=== PATIENT | female | born 1980 | race Caucasian/White ===

== ENCOUNTER 2017-12-26 09:00 | Outpatient (CLI) | payer BC | END 2017-12-26 09:01 | disposition home or self-care (01) | LOC: BICRAD 09:00 | PROVIDERS: ATTEND Urology | DX: N20.0 Calculus of kidney (principal) | CPT/HCPCS: 74018 ==

== ENCOUNTER 2018-01-16 10:37 | Outpatient (CLI) | payer BC ==
[2018-01-16 11:22] LABS: Hemoglobin 15.2 g/dL (12.0-16.0); Mean Corpuscular HGB CONC 33.9 g/dL (32.0-36.0); Mean Corpuscular Hemoglobin 31.2 pg (27.0-31.0); Mean Corpuscular Volume 92.1 fl (81.0-99.0); Mean Platelet Volume 6.9 fL (7.4-10.4); Platelet Count 311 thou/uL (130-400); RBC Distribution Width 10.4 % (11.5-14.5); Red Blood Cell (RBC) Count 4.88 mill/uL (4.20-5.40); White Blood Cell (WBC) Count 6.7 thou/uL (4.8-10.8)
[2018-01-16 11:30] LABS: BHCG - Serum Negative (NEGATIVE); Pregs Control Background? CLEAR/WHITE (CLR/WHITE); Pregs Control Bar Appear? YES (CONTROL BAR)
[2018-01-16 11:45] LABS: Anion Gap 12 mmol/L (10-20); BUN (Urea Nitrogen) 17 mg/dL (7.0-18.7); Calc. Creatinine Clearance 0 mL/min (70-130); Calcium 9.2 mg/dL (7.8-10.44); Carbon Dioxide 25 mmol/L (22-29); Chloride 106 mmol/L (98-107); Estimated GFR-MDRD 75; Glucose 107 mg/dL (70-105); Potassium 4.5 mmol/L (3.5-5.1); Sodium 138 mmol/L (136-145)
[2018-01-16 12:14] LABS: PTT 32.2 SEC (22.9-36.1); Prothrombin Time 12.8 SEC (12.0-14.7)
== END 2018-01-16 10:38 | disposition home or self-care (01) ==
LOC: LABBT 10:37
PROVIDERS: ATTEND Urology
DX: Z01.812 Encounter for preprocedural laboratory examination (principal); N20.0 Calculus of kidney
CPT/HCPCS: 80048; 84703; 85027; 85576; 85610; 85730

== ENCOUNTER 2018-01-17 05:44 | Day surgery (SDC) | payer BC ==
[2018-01-16 11:15] VITALS: BMI 21.6
[2018-01-17] MEDS ORDERED: Midazolam HCl 2 mg/2 ml Vial ONE (06:14)
[2018-01-17] MEDS ORDERED: Fentanyl 100 MCG/2 ML VIAL ONE ×3 (06:14→08:43)
[2018-01-17] MEDS ORDERED: Promethazine HCl 25 MG/ML VIAL ONE ×2 (07:33→09:05)
--- NOTE | 2018-01-17 08:16 | RAD ---
KUB: Date: 01/17/18 PROVIDED CLINICAL HISTORY: Preop. FINDINGS: Comparison made with the study dated 09/07/05. The abdominal bowel gas pattern is nonspecific. Calculus overlies the right renal shadow. Cholecystec radha clips are seen in the right upper quadrant. The abdominal bowel gas pattern is nonspecific. [place] l[place] densities, possibly reflecting clips, are seen overlying the left hemipelvis. IMPRESSION: Right nephrolithiasis. POS: RUSLAN
[2018-01-17] MEDS ORDERED: Ondansetron ODT 8 MG TAB ONE (08:47)
[2018-01-17] MEDS ORDERED: HYDROcodone/Acetaminophen 5/325 mg Tablet ONE (09:43)
--- NOTE | 2018-01-17 10:27 | OP ---
DATE OF PROCEDURE: 01/17/2018 PREOPERATIVE DIAGNOSIS: Right renal stone. POSTOPERATIVE DIAGNOSIS: Right renal stone. PROCEDURE PERFORMED: Extracorporeal shock wave lithotripsy. SURGEON: Dr. Josse Saunders ANESTHETIC: General. ESTIMATED BLOOD LOSS: Not recorded. 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 She has a lower pole reconstructive procedure, so this stone was treated with 700 shocks at maximum level 4. It did appear to fragment very well. No sten t was placed. OPERATIVE TECHNIQUE: After obtaining written and verbal consent from the patient, after documenting normal preoperative blood work and platelet function assay, she was taken the operating suite. She w as placed in the supine position on the treatment table. PlexiPulses were placed on her lower extrem ities and turned on. She was given a general anesthetic and oral obturator intubation. She was then coupled to the lithotripsy unit. The stone was easily seen and placed in treatment focal point. Sh ockwave therapy was commenced at a low kV and a low rate after a couple 100 shocks, a 5 minute pause was given. The power was then increased to 4 and a rate at 60, the stone disappeared after about 500 shocks and then we removed the head and looked better and found it had fallen up towards the lower p ole and had spread out in size. We then repositioned her, we placed her in the treatment focal point and then started again and then after another 200 shocks could not see the stone, could not see the stone in any of the planes, could not see the stone in any other locations in the kidney. At that po int it was felt the stone had fragmented. No stent was placed. She was awakened, extubated, and corinna en by stretcher to the recovery room.
[2018-01-17] MEDS ORDERED: Lidocaine 1% PF 5 ML VIAL ONE (11:54)
[2018-01-17] MEDS ORDERED: PROPOFOL 200 MG/20 ML VIAL ONE (11:54)
[2018-01-17] MEDS ORDERED: Dexamethasone 20 MG/5 ML VIAL ONE (11:54)
== END 2018-01-17 10:05 | disposition home or self-care (01) ==
LOC: SDC 05:44
PROVIDERS: ATTEND Urology
PROC: 0TF3XZZ Fragmentation in Right Kidney Pelvis, External Approach (ICD-10-PCS; principal; 2018-01-17)
DX: N20.0 Calculus of kidney (principal); Z79.3 Long term (current) use of hormonal contraceptives; Z79.899 Other long term (current) drug therapy; Z88.2 Allergy status to sulfonamides; Z98.890 Other specified postprocedural states; Z87.891 Personal history of nicotine dependence
CPT/HCPCS: 74018; 96374; J2250; J2550; J3010

== ENCOUNTER 2021-07-08 11:05 | Day surgery (SDC) | payer BC ==
[2021-07-08] MEDS ORDERED: Ketorolac Tromethamine 30 MG/ML VIAL ONE (11:49)
[2021-07-08] MEDS ORDERED: Ondansetron PF 4 MG/2 ML Vial ONE ×2 (11:49→15:18)
[2021-07-08] MEDS ORDERED: HYDROmorphone 0.5 MG/0.5 ML SYRINGE ONE ×3 (11:51→15:18)
[2021-07-08 11:59] LABS: #Basophils 0.1 thou/uL (0.0-0.2); #Eosinphils 0.2 thou/uL (0.0-0.7); #Lymphocytes 1.9 thou/uL (1.20-3.40); #Monocytes 0.6 thou/uL (0.11-0.59); #Neutrophils 5.9 thou/uL (1.40-6.50); %Lymphocytes 21.7 % (21.0-51.0); %Monocytes 7.3 % (0.0-10.0); %Neutrophils 67.9 % (42.0-75.0); Hemoglobin 14.1 g/dL (12.0-16.0); Mean Corpuscular HGB CONC 33.1 g/dL (32.0-36.0); Mean Corpuscular Hemoglobin 30.2 pg (27.0-31.0); Mean Corpuscular Volume 91.3 fL (78.0-98.0); Platelet Count 312 thou/uL (130-400); RBC Distribution Width 10.6 % (11.5-14.5); Red Blood Cell (RBC) Count 4.66 mill/uL (4.20-5.40); White Blood Cell (WBC) Count 8.6 thou/uL (4.8-10.8)
[2021-07-08 12:00] LABS: Bacteria/HPF 2+ HPF (None Seen); Bilirubin Negative (Negative); Blood, Urine Negative (Negative); Clarity Clear (Clear); Glucose, Urine (Dipstick) Normal (Negative); Ketone, Urine Negative (Negative); Leukocyte 250 Leu/uL (Negative); Nitrite Negative (Negative); Protein, Urine (Dipstick) Negative (Neg-Trace); RBC/HPF 0-3 HPF (0-3); Specific Gravity, Urine 1.004 (1.002-1.036); Urobilinogen Normal mg/dL (Less than 2); pH, Urine 6.5 (5.0-9.0)
[2021-07-08 12:05] LABS: Pregnancy Test - Urine (BHCG) Negative (Negative); Pregu Control Background? CLEAR/WHITE (CLR/WHITE); Pregu Control Bar Appear? YES (CONTROL BAR); Specific Gravity 1.004 (1.002-1.036)
[2021-07-08 12:18] LABS: ALT (SGPT) 68 U/L (8-55); AST (SGOT) 39 U/L (5-34); Albumin 4.2 g/dL (3.5-5.0); Alkaline Phosphatase 98 U/L (40-110); Anion Gap 13 mmol/L (10-20); BUN (Urea Nitrogen) 10 mg/dL (7.0-18.7); Bilirubin, Total 0.3 mg/dL (0.2-1.2); Calc. Creatinine Clearance 0 mL/min (70-130); Calcium 9.7 mg/dL (7.8-10.44); Carbon Dioxide 26 mmol/L (22-29); Chloride 103 mmol/L (98-107); Globulin 3.6 g/dL (2.4-3.5); Glucose 101 mg/dL (70-105); Potassium 4.3 mmol/L (3.5-5.1); Protein, Total 7.8 g/dL (6.0-8.3); Sodium 138 mmol/L (136-145)
[2021-07-08 14:03] LABS: Bilirubin Negative (Negative); Blood, Urine Negative (Negative); Clarity Clear (Clear); Glucose, Urine (Dipstick) Normal (Negative); Ketone, Urine Negative (Negative); Leukocyte Negative Leu/uL (Negative); Nitrite Negative (Negative); Protein, Urine (Dipstick) Negative (Neg-Trace); Specific Gravity, Urine 1.008 (1.002-1.036); Urobilinogen Normal mg/dL (Less than 2)
[2021-07-08 16:43] LABS: SARS-CoV-2 NAA Rapid Test Not Detected (NotDetected)
[2021-07-08] MEDS ORDERED: Ondansetron ODT 4 MG TAB SL PRN (18:45)
[2021-07-08] MEDS ORDERED: Acetaminophen 325 MG TAB PO PRN (18:45)
[2021-07-08] MEDS ORDERED: Ondansetron PF 4 MG/2 ML Vial IVP PRN (18:45)
[2021-07-08 19:34] VITALS: BMI 24.9
[2021-07-08] MEDS: HYDROcodone/Acetaminophen 5/325 mg Tablet PO PRN (21:52)
[2021-07-09] MEDS: HYDROcodone/Acetaminophen 5/325 mg Tablet PO PRN (06:31)
[2021-07-09] MEDS ORDERED: HYDROmorphone 0.5 MG/0.5 ML SYRINGE SLOW IVP PRN (08:16)
[2021-07-09] MEDS ORDERED: cefTRIAXone\\ROCEPHIN 1 GM in Sodium Chloride 0.9% 100 ML IVPB SCH (08:30)
[2021-07-09] MEDS ORDERED: Ondansetron PF 4 MG/2 ML Vial IVP PRN (08:55)
[2021-07-09] MEDS ORDERED: FLU VACC QS2021-22(6MOS UP)/PF 60 MCG/0.5 ML SYRINGE IM ONE (09:00)
[2021-07-09] MEDS ORDERED: Fentanyl 100 MCG/2 ML VIAL ONE ×5 (10:48→14:13)
[2021-07-09] MEDS ORDERED: Iothalamate Meglumine 60% 50 ML VIAL FS ONE (12:54)
[2021-07-09] MEDS ORDERED: Lidocaine 1% PF 5 ML VIAL ONE (13:08)
[2021-07-09] MEDS ORDERED: PROPOFOL 200 MG/20 ML VIAL ONE (13:08)
[2021-07-09] MEDS ORDERED: Ondansetron PF 4 MG/2 ML Vial ONE (13:08)
[2021-07-09] MEDS ORDERED: Dexamethasone 20 MG/5 ML VIAL ONE (13:08)
[2021-07-09] MEDS ORDERED: Propofol 500 MG/50 ML VIAL ONE (13:17)
[2021-07-09] MEDS ORDERED: Promethazine HCl 25 MG/ML VIAL ONE (13:50)
[2021-07-09] MEDS ORDERED: Promethazine HCl 25 MG/ML VIAL IVPB PRN (13:58)
[2021-07-09] MEDS ORDERED: Ketorolac Tromethamine 30 MG/ML VIAL IVP PRN (13:58)
[2021-07-09] MEDS ORDERED: Ondansetron HCl/PF 4 MG/2 ML Vial IVP PRN (13:58)
[2021-07-09] MEDS ORDERED: Promethazine HCl 25 MG/ML VIAL IM PRN (13:58)
[2021-07-09] MEDS ORDERED: HYDROmorphone 2 MG/ML VIAL SLOW IVP PRN (13:58)
[2021-07-09] MEDS ORDERED: Ketorolac Tromethamine 30 MG/ML VIAL ONE (14:03)
[2021-07-09 16:32] VITALS: BP 142/80; TEMP 97.6
[2021-07-09] MEDS ORDERED: traMADol HCl 50 MG TAB PO PRN (16:40)
[2021-07-09] MEDS ORDERED: Oxybutynin 5 MG TAB PO PRN (16:41)
[2021-07-10] MEDS ORDERED: Cephalexin 250 MG CAP PO SCH (09:00)
== END 2021-07-09 18:19 | disposition home or self-care (01) ==
LOC: ERS 11:05 → SJJU 15:02 → SDC/OP 15:02 → ERS 15:03 → SJJU 19:19 → SDC/OP 07-09 18:19
PROVIDERS: ATTEND Urology
PROC: 0T768DZ Dilation of Right Ureter with Intraluminal Device, Via Natural or Artificial Opening Endoscopic (ICD-10-PCS; principal; 2021-07-09)
DX: N13.30 Unspecified hydronephrosis (principal); Z88.2 Allergy status to sulfonamides
CPT/HCPCS: 51701; 71045; 74176; 74420; 80053; 81003; 81015; 81025; 85025; 87086; 93005; 96374; 96375; 96376; C2617; J0696; J1100; J1170; J1885; J2405; J2550; J2704; J3010; J3490; Q9961-U8; U0002

== ENCOUNTER 2021-07-15 10:17 | Outpatient (CLI) | payer BC ==
[2021-07-15 11:52] LABS: Hemoglobin 13.6 g/dL (12.0-15.5); Mean Corpuscular HGB CONC 33.7 g/dL (32.0-36.0); Mean Corpuscular Hemoglobin 29.9 pg (27.0-33.0); Mean Corpuscular Volume 88.6 fl (81.6-98.3); Mean Platelet Volume 9.3 fl (7.4-10.4); Platelet Count 369 10x3/uL (150-450); RBC Distribution Width 11.6 % (11.5-14.5); Red Blood Cell (RBC) Count 4.55 10x6/uL (3.90-5.03)
[2021-07-15 12:11] LABS: BHCG - Serum Negative (NEGATIVE); Pregs Control Background? CLEAR/WHITE (CLR/WHITE); Pregs Control Bar Appear? YES (CONTROL BAR)
[2021-07-15 12:13] LABS: Anion Gap 15 mmol/L (10-20); BUN (Urea Nitrogen) 11 mg/dL (7.0-18.7); Calc. Creatinine Clearance 0 mL/min (70-130); Calcium 9.3 mg/dL (7.8-10.44); Carbon Dioxide 23 mmol/L (22-29); Chloride 106 mmol/L (98-107); Glucose 98 mg/dL (70-105); Potassium 4.6 mmol/L (3.5-5.1); Sodium 139 mmol/L (136-145)
[2021-07-15 23:10] LABS: SARS-CoV-2 PCR by NAA Not Detected (NotDetected)
== END 2021-07-15 10:18 | disposition home or self-care (01) ==
LOC: LABBT 10:17
PROVIDERS: ATTEND Urology
DX: Z01.812 Encounter for preprocedural laboratory examination (principal); Z20.822 Contact with and (suspected) exposure to COVID-19
CPT/HCPCS: 80048; 84703; 85027; 87086; U0003; U0005

== ENCOUNTER 2021-07-19 11:40 | Day surgery (SDC) | payer BC ==
[2021-07-16 12:16] VITALS: BMI 24.9
[2021-07-19] MEDS ORDERED: Iothalamate Meglumine 60% 50 ML VIAL FS ONE (13:18)
[2021-07-19] MEDS ORDERED: Levofloxacin 500 mg/D5W 100 ml Premix Bag ONE (13:26)
[2021-07-19] MEDS ORDERED: Fentanyl 100 MCG/2 ML VIAL ONE (13:37)
[2021-07-19] MEDS ORDERED: PHENYLEPHRINE-NS 100 MCG/ML 10 ML SYRINGE ONE (13:47)
[2021-07-19] MEDS ORDERED: Lidocaine 1% PF 5 ML VIAL ONE (13:47)
[2021-07-19] MEDS ORDERED: Succinylcholine 200 MG/10 ml SYRINGE FS ONE (13:47)
[2021-07-19] MEDS ORDERED: Ketorolac Tromethamine 30 MG/ML VIAL ONE (13:47)
[2021-07-19] MEDS ORDERED: Ondansetron PF 4 MG/2 ML Vial ONE (13:47)
[2021-07-19] MEDS ORDERED: PROPOFOL 200 MG/20 ML VIAL ONE (13:47)
[2021-07-19] MEDS ORDERED: Dexamethasone 20 MG/5 ML VIAL ONE (13:47)
[2021-07-19] MEDS ORDERED: HYDROcodone/Acetaminophen 5/325 mg Tablet ONE (15:43)
== END 2021-07-19 16:05 | disposition home or self-care (01) ==
LOC: SDC 11:40
PROVIDERS: ATTEND Urology
PROC: 0T768DZ Dilation of Right Ureter with Intraluminal Device, Via Natural or Artificial Opening Endoscopic (ICD-10-PCS; principal; 2021-07-19)
PROC: 0TP98DZ Removal of Intraluminal Device from Ureter, Via Natural or Artificial Opening Endoscopic (ICD-10-PCS; principal; 2021-07-19)
DX: N13.5 Crossing vessel and stricture of ureter without hydronephrosis (principal); Z79.2 Long term (current) use of antibiotics; Z79.899 Other long term (current) drug therapy; Z88.2 Allergy status to sulfonamides; Z98.890 Other specified postprocedural states
CPT/HCPCS: 74420; C2617; J1100; J1885; J1956; J2405; J2704; J3010; Q9961-U8